=== PATIENT | female | born 1945 | race Caucasian/White ===

== ENCOUNTER → 2018-01-02 | Outpatient (CLI) | payer MEDICARE ==
--- NOTE | 2018-01-02 12:24 | RADIOLOGY IMAGING REPORT ---
FACILITY: [facility] [place] PATIENT NAME: Jory Warren : 1945 MR: [id number] V: [id number] EXAM DATE: ORDERING PHYSICIAN: YASH ORELLANA TECHNOLOGIST: Location: [facility] Patient: Jory Warren : 1945 Visit/Account:[id number] Date of Sevice: 01/02/2018 Exam type: CHEST PA AND LAT History: Abnormal lung sounds, shortness of breath, current smoker Comparison: None. Findings: There is mild hyperinflation lung cervantes with flattening the hemidiaphragms. The lungs are free of f ocal infiltrates, pleural effusions or pulmonary edema. There is a vague area of increased density p rojecting over the right heart border on the PA view. There is no evidence of a pneumothorax or pneu momediastinum. The trachea is midline. Cardiac silhouette is normal in size. IMPRESSION: 1. Mild hyperinflation of the lung cervantes although no evidence of acute pulmonary infiltrates. The vague area of increased density projecting over the right heart border on the PA view. This may simply represent superimposed shadow however given the clinical history a short-term interval follow- up chest or chest CT may be helpful Report Dictated By: Elena Weinberg MD at 01/02/2018 12:19 PM Report E-Signed By: Elena Weinberg MD at 01/02/2018 12:20 PM WSN:[email or web address]
== END ==
LOC: RAD 10:19
PROVIDERS: ATTEND Family Medicine
DX: R09.89 Other specified symptoms and signs involving the circulatory and respiratory systems (principal)
CPT/HCPCS: 71046